=== PATIENT | male | born 1995 | race Two or more races ===

== ENCOUNTER → 2018-11-14 | Outpatient (CLI) | payer OTHER ==
--- NOTE | 2018-11-14 14:17 | RADIOLOGY IMAGING REPORT ---
FACILITY: [facility] - [place] PATIENT NAME: Dylan Lozada : 1995 MR: [id number] V: [id number] EXAM DATE: ORDERING PHYSICIAN: ALEX REYEZ TECHNOLOGIST: [place] [facility] [place] Loz[place] : 1995 Visit/Account:[id number] Date of Sevice: 11/14/2018 Exam type: XR WRIST 3 OR MORE VIEWS RT History: From door slammed shut on right wrist Comparison: None. Findings: There is a slight cortical irregularity seen along the lateral aspect of the distal metaphyseal epiph yseal junction of the right radius likely related to growth plate remnant. Otherwise no evidence of acute fracture-dislocation involving the right wrist.. No radiopaque foreign body seen IMPRESSION: 1. No gross evidence of acute fractures condition involving the right wrist. Slight cortical irregu larity along the lateral aspect the distal metaphyseal epiphyseal junction of the distal right radius is likely related to a growth plate remnant. Report Dictated By: Ijeoma Garland MD at 11/14/2018 2:06 PM Report E-Signed By: Ijeoma Garland MD at 11/14/2018 2:13 PM WSN:[email or web address]
== END ==
LOC: RAD 13:31
PROVIDERS: ATTEND Emergency Medicine Sports Medicine
DX: M25.531 Pain in right wrist (principal)